=== PATIENT | female | born 2005 | race Caucasian/White ===

== ENCOUNTER 2024-05-10 07:30 | Inpatient (IN) | payer SELFPAY ==
[2024-05-10] VITALS (22 sets, daily range): BP systolic 100–124; BP diastolic 51–77; PULSE 64–113; RESP 16; TEMP 36.3–36.8; O2SAT 98; BMI 29.4
[2024-05-10] MEDS: Lactated Ringers 1,000 ML 50 ML IV (08:00)
[2024-05-10 08:33] LABS: Absolute Lymphocyte Count 1.08 X10^3/uL (0.83-4.51); Absolute Neutrophil Count 6.6 X10^3/uL (2.0-7.7); Basophil# 0.02 X10^3/uL; Basophil% 0.2 % (0-1); Eosinophil# 0.03 X10^3/uL; Eosinophils% 0.4 % (0-5); Hematocrit 32.6 % (37-47); Hemoglobin 10.3 g/dL (12.0-15.0); Lymphocyte # 1.08 X10^3/ul (0.83-4.51); Lymphocyte % 12.9 % (19-41); Mean Corp Hgb Conc 31.6 g/dL (32-36); Mean Corpuscular Hgb 27.9 pg (27.0-32.0); Mean Corpuscular Volume 88.3 fL (81-99); Monocyte# 0.57 X10^3/uL; Monocyte% 6.8 % (0-10); NRBC Flagged by Analyzer 0.2 % (0-5); Neutrophil # 6.58 X10^3/uL (2.7-7.7); Neutrophil % 78.9 % (47-70); Platelet Count 224 K/mm3 (150-450); RBC Distribution Width CV 13.7 % (11.6-14.6); RBC Distribution Width SD 43.6 fl (35.1-43.9); Red Blood Count 3.69 M/mm3 (4.2-5.4); White Blood Count 8.4 K/mm3 (4.4-11.0)
[2024-05-10 09:25] LABS: Syphilis Antibodies Non-reactive
[2024-05-10 09:40] LABS: Bedside Glucose 76 mg/dL (74-106)
[2024-05-10 14:09] LABS: Bedside Glucose 106 mg/dL (74-106)
--- NOTE | 2024-05-10 18:40 | PCM.HP.OB ---
HPI - General General Date of Admission: 05/10/24 Date of Service: 05/10/24 Chief Complaint: SROM HPI Narrative THIEN MCDANIEL, is a 18 F who presents SROM at term. Desires natural and water if able. GBS negative. GDMA1 controlled. Maternal Data Information Final SEAN: 05/13/24 Gestational age: 39+4 PFSH PFSH Medical History Gestational diabetes Enlarged tonsils and adenoids Home Medications ?Medication ?Instructions ?Recorded ?Last Taken ?Type evening primrose oil 500 mg capsule 500 mg PO DAILY 05/10/24 05/09/24 History fgrzztti-rrm-Qw-FA 1 mg tab PO DAILY 05/10/24 05/09/24 History tablet Allergy/AdvReac Type Severity Reaction Status Date / Time Penicillins Allergy Intermediate Rash Verified 05/10/24 10:15 Social History Smoking Status: Never smoker History Elective abortions Hx Para 0 Spontaneous abortions Hx # Term Pregnancies Ectopic pregnancies Hx # Pregnancies Multiple births # of living children NST FHR Rate Baby A Baseline: 130 Variability:: Moderate Accelerations:: 15 x 15 Decelerations:: None NST Reactive:: Yes FHR Category:: Category I ROS Constitutional Constitutional: Denies fatigue, fever(s) or malaise Eyes Eyes: Denies change in vision ENT HEENT: Denies dizziness or headache(s) Cardiovascular Cardiovascular: Denies chest pain, dyspnea or lightheadedness Respiratory/Chest Respiratory/Chest: Denies cough or dyspnea Gastrointestinal Gastrointestinal: Denies change in bowel habits Genitourinary Genitourinary: Denies burning urination or genital lesions Integumentary Integumentary: Denies rash Neurologic Neurologic: Denies confusion, dizziness, headache(s), numbness or weakness Vital Signs Vital Signs Vital Signs: 05/10/24 08:51 05/10/24 08:51 05/10/24 08:51 Temperature 97.7 F L Temperature Source Temporal Pulse Rate Respiratory Rate 16 Blood Pressure BP Systolic BP Diastolic Pulse Ox 05/10/24 08:52 05/10/24 08:52 05/10/24 09:00 Temperature Temperature Source Temporal Pulse Rate 87 Respiratory Rate Blood Pressure 100/58 L BP Systolic 100 BP Diastolic 58 Pulse Ox 05/10/24 09:00 05/10/24 09:00 05/10/24 09:00 Temperature 97.7 F L Temperature Source Pulse Rate 88 Respiratory Rate 16 Blood Pressure BP Systolic BP Diastolic Pulse Ox 05/10/24 09:30 05/10/24 09:30 05/10/24 10:00 Temperature Temperature Source Pulse Rate 80 80 Respiratory Rate 16 Blood Pressure BP Systolic BP Diastolic Pulse Ox 05/10/24 10:00 05/10/24 10:58 05/10/24 10:58 Temperature Temperature Source Pulse Rate 64 Respiratory Rate 16 16 Blood Pressure BP Systolic BP Diastolic Pulse Ox 05/10/24 11:03 05/10/24 11:03 05/10/24 11:03 Temperature Temperature Source Temporal Pulse Rate 81 Respiratory Rate 16 Blood Pressure BP Systolic BP Diastolic Pulse Ox 05/10/24 11:03 05/10/24 11:03 05/10/24 11:04 Temperature 98.0 F Temperature Source Pulse Rate Respiratory Rate Blood Pressure 114/59 L BP Systolic 114 BP Diastolic 59 Pulse Ox 98 05/10/24 11:04 05/10/24 11:26 05/10/24 11:26 Temperature Temperature Source Pulse Rate 81 80 Respiratory Rate 16 Blood Pressure BP Systolic BP Diastolic Pulse Ox 05/10/24 12:00 05/10/24 12:00 05/10/24 12:00 Temperature Temperature Source Temporal Pulse Rate 80 Respiratory Rate 16 Blood Pressure BP Systolic BP Diastolic Pulse Ox 05/10/24 12:00 05/10/24 12:30 05/10/24 12:30 Temperature 97.5 F L Temperature Source Pulse Rate 86 Respiratory Rate 16 Blood Pressure BP Systolic BP Diastolic Pulse Ox 05/10/24 13:01 05/10/24 13:01 05/10/24 13:01 Temperature Temperature Source Temporal Pulse Rate 101 H Respiratory Rate Blood Pressure 113/56 L BP Systolic 113 BP Diastolic 56 Pulse Ox 05/10/24 13:01 05/10/24 13:01 05/10/24 13:01 Temperature 98.2 F Temperature Source Pulse Rate Respiratory Rate 16 Blood Pressure BP Systolic BP Diastolic Pulse Ox 98 05/10/24 13:02 05/10/24 13:02 05/10/24 13:02 Temperature Temperature Source Pulse Rate 101 H Respiratory Rate Blood Pressure 113/56 L BP Systolic 113 BP Diastolic 56 Pulse Ox 98 05/10/24 14:01 05/10/24 14:01 05/10/24 15:14 Temperature Temperature Source Pulse Rate 88 Respiratory Rate 16 Blood Pressure 104/51 L BP Systolic 104 BP Diastolic 51 Pulse Ox 05/10/24 15:14 05/10/24 15:14 05/10/24 15:14 Temperature Temperature Source Temporal Pulse Rate 99 Respiratory Rate 16 Blood Pressure BP Systolic BP Diastolic Pulse Ox 05/10/24 15:14 05/10/24 17:16 05/10/24 17:16 Temperature 97.3 F L Temperature Source Pulse Rate 90 Respiratory Rate 16 Blood Pressure BP Systolic BP Diastolic Pulse Ox 05/10/24 17:50 05/10/24 17:50 Temperature Temperature Source Pulse Rate 90 Respiratory Rate 16 Blood Pressure BP Systolic BP Diastolic Pulse Ox Weight Weight: 68.266 kg Body Mass Index (BMI) 29.4 Physical Exam Const alert and no apparent distress General Appearance: cooperative HEENT normocephalic Resp normal respiratory effort GI soft to palpation GI Narrative: gravid, nontender, appropriate for gestational age Extremity no calf tenderness General Extremity: edema Skin no wounds Rashes: No rashes noted Psych activity/motor behavior normal Labs Labs Labs: Blood Type A POSITIVE Antibody Screen NEGATIVE Hct 32.6 % (37-47) L Hgb 10.3 g/dL (12.0-15.0) L Syphilis Total Ab Non-reactive Assessment & Plan (1) SROM (spontaneous rupture of membranes): (2) 39 weeks gestation of : (3) GDM, class A1: PLAN: Plan Augmentation PRN
[2024-05-10 18:41] LABS: Bedside Glucose 116 mg/dL (74-106)
[2024-05-10 19:32] LABS: Bedside Glucose 104 mg/dL (74-106)
[2024-05-10 21:21] LABS: Bedside Glucose 100 mg/dL (74-106)
[2024-05-11] VITALS (21 sets, daily range): BP systolic 100–118; BP diastolic 55–64; PULSE 85–108; RESP 16; TEMP 36.3–37; O2SAT 95–98
[2024-05-11] MEDS: Oxytocin 15 Units/NS 250ml 15 UNITS/250 ML IV.SOLN 334 UNITS IV (00:02)
--- NOTE | 2024-05-11 00:33 | OP.PCM_ITS ---
Assessment & Plan (1) GDM, class A1: (2) Vaginal delivery: (3) Second degree perineal laceration: Vaginal Delivery Maternal Presentation Maternal Presentation: Active Labor and Spontaneous Rupture of Membranes Operative Information Date of Procedure: 05/10/24 Pre-Operative Diagnosis: SROM Post-Operative Diagnosis: , 2nd degree perineal laceration, Waterbirth Surgery / Procedure Performed: Spontaneous Vaginal Delivery and - (Waterbirth) Type of Anesthesia: Local with 1% Lidocaine Estimated Blood Loss: 400 ml Time of Delivery: 23:56 Findings Description of Procedure: Progressed to complete with urge to push. Unmedicated. of viable male, waterbirth. APGARS 8,9 respectively. Infant head delivered with body immediately forthcoming. Placed on maternal abdomen, strong cry. Mouth and nares wiped for secretions. Cord doubly clamped and cut by FOB after pulsations ceased, delayed cord clamping. Pitocin started for active 3rd stage management. Placenta delivered intact via calhoun, 3 vessel cord intact. Perineum inspected and rev ealed 2nd degree perineal laceration. Repaired with 3.0 vicryl rapide x2 and lidocaine. Fundus firm and hemostasis achieved. EBL 400ml. Mom and baby stable, planning to breastfeed. Family bonding well. present at delivery. Presentation: Vertex and AYAKA Amniotic Membrane Rupture Type: Spontaneous Amniotic Fluid Description: Clear Placental Delivery Description: Spontaneous Placenta Disposition: [facility] Cord Vessel Description: 3 Vessels Cord Entanglement: None Infant A Gender: Male (1 minute): 8 (5 minute): 9 Delayed Cord Clamping: Yes Post Vaginal Delivery Medications Given After Delivery: IV Pitocin Episiotomy Description: None Laceration: Perineal Extension/lac and 2nd degree Complication Complications: None
[2024-05-11] MEDS: Lidocaine 1% (20 ml mdv) 20 ML Vial INFILT (00:34)
[2024-05-11] MEDS: Oxytocin 15 Units/NS 250ml 15 UNITS/250 ML IV.SOLN 83 UNITS IV (00:47)
[2024-05-11 03:23] LABS: Bedside Glucose 147 mg/dL (74-106)
[2024-05-11 06:09] LABS: Absolute Lymphocyte Count 1.02 X10^3/uL (0.83-4.51); Absolute Neutrophil Count 15.6 X10^3/uL (2.0-7.7); Basophil# 0.02 X10^3/uL; Basophil% 0.1 % (0-1); Hematocrit 29.7 % (37-47); Hemoglobin 9.9 g/dL (12.0-15.0); Lymphocyte # 1.02 X10^3/ul (0.83-4.51); Lymphocyte % 5.9 % (19-41); Mean Corp Hgb Conc 33.3 g/dL (32-36); Mean Corpuscular Hgb 28.9 pg (27.0-32.0); Mean Corpuscular Volume 86.6 fL (81-99); Mean Platelet Vol. 10.9 fl (6.2-12.0); Monocyte# 0.54 X10^3/uL; Monocyte% 3.1 % (0-10); NRBC Flagged by Analyzer 0 % (0-5); Neutrophil % 90.5 % (47-70); Platelet Count 229 K/mm3 (150-450); RBC Distribution Width CV 13.8 % (11.6-14.6); RBC Distribution Width SD 42.3 fl (35.1-43.9); Red Blood Count 3.43 M/mm3 (4.2-5.4); White Blood Count 17.3 K/mm3 (4.4-11.0)
[2024-05-11 07:09] LABS: Bedside Glucose 153 mg/dL (74-106)
--- NOTE | 2024-05-11 07:34 | PN.OBGYN_ITS ---
Subjective Subjective Doing well. Has not been up much yet. Has not taken anything for pain yet, but would like motrin this am. Breast feeding. Voiding without difficulty Objective Data Objective Data Vital Signs: Vital Signs Temp Pulse Resp BP Pulse Ox O2 Del Method 97.3 F L 96 16 110/61 98 Room Air 05/11/24 04:15 05/11/24 04:15 05/11/24 04:15 05/11/24 04:15 05/11/24 04:15 05/11/24 04:15 Oxygen Delivery Method Room Air Weight: 68.266 kg Body Mass Index (BMI) 29.4 Intake & Output: Intake and Output for Last 24 Hours 05/09/24 05/10/24 05/11/24 23:59 23:59 23:59 Intake Total 533.33 / 533.33 500 / 500 Output Total 400 / 400 Balance 533.33 / 533.33 100 / 100 Lab / Micro Data 05/11/24 05:55 Labs: Laboratory Results - last 24 hr 05/10/24 08:07: WBC 8.4, RBC 3.69 L, Hgb 10.3 L, Hct 32.6 L, MCV 88.3, MCH 27.9, MCHC 31.6 L, RDW Std Deviation 43.6, RDW Coeff of Codie 13.7, Plt Count 224, MPV 11.0, Immature Gran % (Auto) 0.800, Neut % (Auto) 78.9 H, Lymph % (Auto) 12.9 L, [place] % (Auto) 6.8, Eos % (Auto) 0.4, Baso % (Auto) 0.2, Absolute Neuts (auto) 6.6, Absolute Lymphs (auto) 1.08, Nucleated RBC % 0.2, Syphilis Total Ab Non- reactive, Blood Type A POSITIVE, Antibody Screen NEGATIVE 05/10/24 09:10: POC Glucose 76 05/10/24 13:32: POC Glucose 106 05/10/24 17:37: POC Glucose 116 H 05/10/24 18:43: POC Glucose 104 05/10/24 20:35: POC Glucose 100 05/11/24 02:33: POC Glucose 147 H 05/11/24 05:55: WBC 17.3 H, RBC 3.43 L, Hgb 9.9 L, Hct 29.7 L, MCV 86.6, MCH 28.9, MCHC 33.3 D, RDW Std Deviation 42.3, RDW Coeff of Codie 13.8, Plt Count 229, MPV 10.9, Immature Gran % (Auto) 0.400, Neut % (Auto) 90.5 H, Lymph % (Auto) 5.9 L, [place] % (Auto) 3.1, Eos % (Auto) 0.0, Baso % (Auto) 0.1, Absolute Neuts (auto) 15.6 H, Absolute Lymphs (auto) 1.02, Nucleated RBC % 0 05/11/24 06:50: POC Glucose 153 H Physical Exam Const alert and no apparent distress Narrative: Fundus firm, below umbilicus. Assessment & Plan (1) Vaginal delivery: (2) Second degree perineal laceration: (3) GDM, class A1: PLAN: Plan routine care
[2024-05-11] MEDS: Ibuprofen 600 MG Tablet PO ×2 (07:40→16:34)
[2024-05-12 02:00] VITALS: BP 112/56; PULSE 100; RESP 16; TEMP 36.7; O2SAT 99
[2024-05-12 02:13] VITALS: PULSE 92; O2SAT 99
[2024-05-12 02:14] VITALS: BP 112/56; PULSE 98
[2024-05-12 07:27] VITALS: BP 112/56; PULSE 95
--- NOTE | 2024-05-12 07:29 | DS.PCM_ITS ---
Providers Date of Admission: 05/10/24 Primary Care Physician: NATASHA ALDANA Reason For Visit: LABOR Diagnosis Discharge Diagnosis (1) Vaginal delivery: Status: Acute Code(s): O80 - Encounter for full-term uncomplicated delivery (2) Second degree perineal laceration: Status: Acute Code(s): O70.1 - Second degree perineal laceration during delivery (3) GDM, class A1: Status: Acute Code(s): O24.410 - Gestational diabetes mellitus in , diet controlled Plan PPD 2 - water support D/C home with follow up in office Medications at Discharge Home Medications rfdsgupl-gwi-Iz-FA 1 mg tablet tab PO DAILY 05/10/24 acetaminophen 500 mg tablet 1,000 mg (2 x 500 mg) PO Q6H PRN PRN Pain 1-10 Or Fever #0 tabs 05/12/24 ibuprofen 600 mg tablet 600 mg PO Q6H PRN PRN Pain Score 1-10 #0 tabs 05/12/24 Hospital Course Operations None Procedures None Summary of Care Provided Minutes Spent on Discharge: 15 Hospital Course: Patient had . Hospital course was uneventful. Physical Exam Const alert and no apparent distress General Appearance: cooperative and comfortable Exam Limitations: no limitations HEENT normocephalic Eyes General Eye: normal appearance of both eyes Neck full ROM General: normal visual inspection Chest Chest: symmetrical chest wall rise Resp normal respiratory effort and normal air movement Effort and Inspection: symmetric chest movement Auscultation: clear to auscultation bilaterally Cardio regular rate and regular rhythm GI normal to inspection, nondistended, normoactive bowel sounds Back/Spine normal ROM Extremity full ROM and no calf tenderness General Extremity: normal exam except as noted Skin no rashes or lesions noted Neuro CN's II-XII intact bilaterally Psych mental status grossly normal Weight / BMI Weight Weight: 150 lb 8 oz Body Mass Index (BMI) 29.4 ABG / Lab / Microbiology Data 05/11/24 05:55 D/C Instructions Discharge Diet: No restrictions May resume sexual activity in: 6-8 weeks Weight Bearing Status: Weight bearing as tolerated Call your doctor if you observe: Fever of 101 or Higher, Inability to urinate, Using more than 1 pad per hour, Shortness of breath, Chest pain, Calf discomfort and Uncontrolled pain When: 2 weeks virtual visit/ 6 weeks in office Meaningful Use Info Meaningful Use Meaningful Use Diagnoses (Choose all that apply): None applicable Ischemic Stroke Statin Dosing Therapy Reference: STATIN DOSE THERAPY REFERENCE: * Patients > 75 years receive moderate or high dose statin therapy. * Patients 75 years or YOUNGER should receive HIGH intensity statin dose unless contraindicated. You will be required to document reason for non-treatment if statin daily dose does not meet guidelines. HIGH DOSE STATIN THERAPY DAILY Atorvastatin > than or = to 40 mg Rosuvastatin > than or = to 20 mg Amlodipine + Atorvastatin > than or = to 2.5/40 mg Ezetimibe + Simvastatin 10/80 mg Simvastatin 80mg Discharge Plan Admission Admit Date/Time: 05/10/24 07:30 Primary Reason for Your Visit: Labor and Delivery Attending Provider: Fabiola Davies Primary Care Provider: EVARISTO NUNEZ Discharge Orders/Prescriptions Prescriptions: New acetaminophen 500 mg Tablet 1,000 mg PO Q6H PRN PRN (Reason: Pain 1-10 Or Fever) Qty: 0 0RF ibuprofen 600 mg Tablet 600 mg PO Q6H PRN PRN (Reason: Pain Score 1-10) Qty: 0 0RF Continued ozeyjhdu-wta-Td-FA 1 mg tablet PO DAILY Discontinued evening primrose oil 500 mg capsule 500 mg PO DAILY Rx Instructions: give with meal/snack Referrals / Follow Up: EVARISTO NUNEZ [employer]CHANIC[employer]ELDER[facility] [Primary Care Provider] - Disposition Disposition (needs filled in before D/C Order can be placed): Home, Self Care
[2024-05-12 07:30] VITALS: BP 112/56; PULSE 95; RESP 16; TEMP 36.8
== END 2024-05-12 13:55 | disposition home or self-care (01) | DRG 807 ==
LOC: WPOUT 08:52 → WP 08:53
PROVIDERS: Advanced Practice Midwife; Admitting Provider Obstetrics & Gynecology; PCP Nurse Practitioner Family; Visit Provider Obstetrics & Gynecology
DX: O24.420 Gestational diabetes mellitus in childbirth, diet controlled (principal); Z37.0 Single live birth; O70.1 Second degree perineal laceration during delivery; Z3A.39 39 weeks gestation of pregnancy
CPT/HCPCS: 59025; 59050; 82962; 85025; 86780; 86850; 86900; 86901; 99221; J7120; G0378

== ENCOUNTER 2024-06-15 18:23 | Observation (INO) | payer SELFPAY ==
[2024-06-15 18:24] VITALS: BP 128/91; PULSE 96; RESP 18; TEMP 36.6; O2SAT 100; BMI 24.4
[2024-06-15 20:14] LABS: Mucous, Urine 0 SEEN /hpf (<or=2+)
[2024-06-15 20:16] LABS: Basophil# 0.02 X10^3/uL; Basophil% 0.1 % (0-1); Hematocrit 38.6 % (37-47); Hemoglobin 12.5 g/dL (12.0-15.0); Lymphocyte % 4.5 % (19-41); Mean Corp Hgb Conc 32.4 g/dL (32-36); Mean Corpuscular Hgb 27.2 pg (27.0-32.0); Mean Corpuscular Volume 84.1 fL (81-99); Mean Platelet Vol. 9.3 fl (6.2-12.0); Monocyte# 0.97 X10^3/uL; Monocyte% 6.2 % (0-10); NRBC Flagged by Analyzer 0 % (0-5); Neutrophil # 13.97 X10^3/uL (2.7-7.7); Neutrophil % 88.8 % (47-70); Platelet Count 291 K/mm3 (150-450); RBC Distribution Width SD 39.7 fl (35.1-43.9); Red Blood Count 4.59 M/mm3 (4.2-5.4); White Blood Count 15.7 K/mm3 (4.4-11.0)
[2024-06-15 20:20] LABS: Color, Urine Yellow (Yellow); Glucose, Dipstick Normal (Normal); Leukocyte Esterase-Dipstick Negative /ul (Negative); Nitrite-Dipstick Negative (Negative); Occult Blood-Urine 50 /ul (Negative); Protein-Dipstick 30 mg/dl (Negative); Specific Gravity, Urine 1.015 (1.002-1.030); Urine Bilirubin Dipstick Negative (Negative); Urine Clarity Sl. Cloudy (Clear); Urine Urobilinogen Normal (Normal)
[2024-06-15 20:24] VITALS: BP 119/70; PULSE 91; RESP 18; TEMP 36.6; O2SAT 99
[2024-06-15 20:34] LABS: Internal QC Validated? YES +Cl - CLEAR BKGD; Pregnancy, Serum, hCG Quali. NEGATIVE Negative; Record Kit Lot#, Serum Preg. 772476
[2024-06-15 20:36] LABS: Ketone-Dipstick 150 mg/dl (Negative)
[2024-06-15 20:40] LABS: Squamous Epithelial Cells - UA 0-5 SEEN /hpf (5-10)
[2024-06-15 20:41] LABS: Bacteria 1+ /hpf (None Seen); Red Blood Cells-Urine 0-5 SEEN /hpf (0-5); White Blood Cells 0-5 SEEN /hpf (0-5)
--- NOTE | 2024-06-15 20:56 | EX.ED.DYSGE1 ---
HPI History of Present Illness Chief Complaint: Nausea/Vomiting Detail of Chief Complaint: Periumbilical pain with vomiting x 10 since yesterday Informant: patient Onset/Context/Timing Onset: Today and Yesterday Context: Sudden Onset Timing: Intermittent and Waxes and wanes Quality: Periumbilical pain. Current Severity: Mild Maximum Severity: Moderate Worsened by: Nothing Relieved by: Nothing Associated Symptoms Associated Symptoms: Nausea and vomiting Narrative Narrative: Patient is a 19-year-old G1, P1 female who delivered in April. She had a first menses started last evening. She reports periumbilical pain. She does report nausea and vomiting. She denies coffee-ground emesis or hematemesis. She denies diarrhea. Denies black or maroon-colored stool. She denies dysuria, frequency, urgency or hematuria. She does endorse thirst and dry mouth. She denies orthostatic symptoms. She denies headache, visual, ocular auditory symptoms. She denies cough, shortness of breath or chest discomfort. Prior similar symptoms: No Recent Illness/Hospitalization: No PFSH [facility] Medical History Second degree perineal laceration Vaginal delivery GDM, class A1 39 weeks gestation of SROM (spontaneous rupture of membranes) Gestational diabetes Enlarged tonsils and adenoids Home Medications ?Medication ?Instructions ?Recorded ?Last Taken ?Type kkwicwbp-vps-Rr-FA 1 mg tab PO DAILY 05/10/24 05/09/24 History tablet acetaminophen 500 mg tablet 1,000 mg (2 x 500 mg) PO Q6H PRN 05/12/24 Unknown Rx PRN Pain 1-10 Or Fever #0 tabs ibuprofen 600 mg tablet 600 mg PO Q6H PRN PRN Pain Score 05/12/24 Unknown Rx 1-10 #0 tabs Allergy/AdvReac Type Severity Reaction Status Date / Time Penicillins Allergy Intermediate Rash Verified 06/15/24 19:01 Social History (Updated 06/15/24 @ 21:[address] Jarad Simms MD) household members: spouse and children Smoking Status: Never smoker ROS ROS ED Constitutional Constitutional ED: Denies chills, fever(s), subjective, sweats or weight loss Eyes Eyes: Denies blurry vision, change in vision or diplopia ENT ENT ED: Denies ear pain, rhinorrhea or sore throat Cardiovascular Cardiovascular: Denies chest pain, orthopnea, palpitations or paroxysmal nocturnal dyspnea Respiratory/Chest Respiratory/Chest: Denies cough, dyspnea, dyspnea on exertion, orthopnea or paroxysmal nocturnal dyspnea Gastrointestinal Gastrointestinal: Reports abdominal pain, nausea and vomiting; Denies constipation, diarrhea or melena Genitourinary Genitourinary ED: Reports LMP (females 10-50) Details: Comment: (June 14, 2024); Denies dysuria, hematuria or urinary frequency Musculoskeletal Musculoskeletal: Denies arthralgias, back pain, myalgias or neck pain Integumentary Denies rash Neurologic Neurologic: Denies headache(s) or paresthesias Hematologic/Lymphatic Hematologic/Lymphatic: Reports systems reviewed and no addt'l complaints, except as documented EXAM Physical Exam Const Vital Signs: 06/15/24 18:24 Temperature 98 F Temperature Source Temporal Pulse Rate 96 Respiratory Rate 18 Blood Pressure 128/91 H Blood Pressure Mean 103 Pulse Ox 100 Oxygen Delivery Method Room Air Positive well nourished and well developed Constitutional Narrative: Patient appears pale and ill. She does not appear toxic. General Appearance ED: well developed, NAD and pallor HEENT Reports dry mucous membranes HEENT Narrative: Head is atraumatic normocephalic. Ears normal. Nares patent. Mouth ED: Yes dry mucous membranes Mouth: dry mucous membranes Eyes PERRL and EOMs intact bilaterally General Eye ED: Negative for pale conjunctiva or scleral icterus Neck no lymphadenopathy, supple and no JVD Resp normal respiratory effort and clear to auscultation bilaterally Cardio regular rate, regular rhythm, S1 normal heart sound, S2 normal heart sound and no murmurs GI normal to inspection, nondistended, normoactive bowel sounds, non-distended and no masses; Negative for non-tender or hepatosplenomegaly GI Narrative: Minimal periumbilical pain. There is no guarding or peritoneal findings. Palpation: soft Back/Spine no CVA tenderness Thoracic Spine / Upper Back: Negative for thoracic spinal tenderness Lumbar Spine / Lower Back: Negative for lumbar spinal tenderness Extremity normal to inspection General Extremety ED: Negative for edema or tenderness General Extremity: Negative for edema Neuro oriented x3, CN's II-XII intact bilaterally and no sensory deficits noted Sensorium / Orientation: alert Motor Exam: strength 5/5 throughout Psych mental status grossly normal Skin no rashes or lesions noted, no wounds and skin turgor normal General Skin Exam: elasticity normal and pallor; Negative for jaundice MDM MDM MDM Narrative Medical decision making narrative: Patient with abrupt onset of nausea vomiting abdominal pain. This may represent a viral illness. Her history and physical is not consistent with bowel obstruction. There is no anorexia. There is no right quadrant pain. Doubt this to be a atypical presentation of appendicitis. Patient's nausea was treated with Zofran. 1 L normal saline was ordered. Lab Data Attestation: I reviewed the patient's lab results. Lab results narrative: Nurse protocol orders were placed. Patient does have a white count. There is slight shift. This is nonspecific. Urinalysis is remarkable for ketones. There is 1+ bacteria with no pyuria and macro is negative for leukoesterase and nitrates. This is asymptomatic bacteriuria recommendation is no treatment. This may also be due to the fact that she is dehydrated. Labs: Laboratory Results - last 24 hr 06/15/24 06/15/24 20:00 20:10 WBC 15.7 H RBC 4.59 Hgb 12.5 Hct 38.6 MCV 84.1 MCH 27.2 MCHC 32.4 RDW Std Deviation 39.7 RDW Coeff of Codie 13.0 Plt Count 291 MPV 9.3 Immature Gran % (Auto) 0.400 Neut % (Auto) 88.8 H Lymph % (Auto) 4.5 L [place] % (Auto) 6.2 Eos % (Auto) 0.0 Baso % (Auto) 0.1 Absolute Neuts (auto) 14.0 H Absolute Lymphs (auto) 0.70 L Nucleated RBC % 0 Sodium 136 Potassium 3.4 L Chloride 105 Carbon Dioxide 22.0 Anion Gap 9 BUN 9 Creatinine 0.97 Estim Creat Clear Calc 72.39 Est GFR (MDRD) Af Amer 94 Est GFR (MDRD) Non-Af 77 BUN/Creatinine Ratio 9.3 L Glucose 140 H Calcium 9.2 Total Bilirubin 0.90 AST 15 ALT 15 Alkaline Phosphatase 70 Total Protein 7.6 Albumin 3.8 Globulin 3.8 Albumin/Globulin Ratio 1.0 Serum , Qual NEGATIVE Urine Color Yellow Urine Clarity Sl. Cloudy Urine pH 8.0 Ur Specific [place] 1.015 Urine Protein 30 H Urine Glucose (UA) Normal Urine Ketones 150 A* Urine Occult Blood 50 H Urine Nitrite Negative Urine Bilirubin Negative Urine Urobilinogen Normal Ur Leukocyte Esterase Negative Urine RBC 0-5 SEEN Urine WBC 0-5 SEEN Ur Squamous Epith Cells 0-5 SEEN Urine Bacteria 1+ Urine Mucus 0 SEEN Radiography Diagnostic Testing: Clinical Impression(s) from Imaging Studies Abdomen/Pelvis CT 06/15/24 21:08 IMPRESSION: Findings consistent with acute appendicitis and possibly leaking due to presence of a small amount of free fluid. No evidence for periappendiceal abscess Electronically Signed: Shelton Verde MD at 21:52 EDT Reading Location ID and State: [facility] / [place] Tel , Service support , CT on my review revealed an abnormal appearing bladder and there appears to be stones in the bladder or pendulous. Awaiting formal read by radiologist. Patient reports allergy to penicillin with rash. Will page surgeon and start on antibiotics. Management Discussion w/another healthcare provider: [employer] (Dr. Huff is made aware. He will be in to see patient. He was informed because of her penicillin allergy she received a dose of meropenem.) and Radiologist Treatment and Re-Evaluation :: I was informed by nurse at 2003 the patient is requesting pain medicine. She was reevaluated. Patient has significant tenderness which she did not when I initially saw her. In light of this morphine was ordered and a CT of the abdomen with IV contrast was ordered as well. Discharge Plan Dx/Rx/DC Orders Clinical Impression: Acute appendicitis, Nausea & vomiting, Ketosis, Asymptomatic bacteriuria Disposition Disposition: Acute Care [facility]
[2024-06-15 20:59] LABS: AST(SGOT) 15 U/L (15-37); Alanine Aminotransfer ALT/SGPT 15 U/L (13-56); Albumin, Serum 3.8 g/dL (3.2-5.0); Alkaline Phosphatase 70 U/L (45-117); Anion Gap 9 (5-15); BUN 9 mg/dL (7-18); BUN/Creat Ratio 9.3 RATIO (10-20); Calcium,Total 9.2 mg/dL (8.5-10.1); Chloride 105 mmol/L (98-107); Creatinine, Serum 0.97 mg/dL (0.55-1.02); EST Glomerular Filtration Rate 77 mL/min (>60); Est Glom Filt Rate - Afr Amer 94 mL/min (>60); Estimated Creatinine Clearance 72.39 ml/min; Globulin 3.8 g/dL (2.2-4.2); Glucose 140 mg/dL (74-106); Potassium 3.4 mmol/L (3.5-5.1); Protein, Total 7.6 g/dL (6.4-8.2); Sodium Level 136 mmol/L (136-145)
--- NOTE | 2024-06-15 21:08 | CT_ITS ---
We are attempting to reach an attending provider to discuss findings. An addendum with communication details will be sent when the communication is complete. STUDY: CT ABDOMEN AND PELVIS WITH CONTRAST REASON FOR EXAM: Female, 19 years old. Pain, guarding, leukocytosis, N/V RADIATION DOSAGE (If Supplied By Facility): CTDIvol = ( 10.83 ) mGy, DLP = ( 390.44 ) mGycm TECHNIQUE: Transaxial images were obtained from the dome of the diaphragm to the symphysis pubis without oral contrast. IV 75mL Isovue-300 was administered. Sagittal and coronal images were reconstructed. Individualized dose optimization techniques were used for this CT. COMPARISON: None. FINDINGS: The visualized lung bases are unremarkable. The visualized portions of the heart are within normal limits. Normal liver. Normal gallbladder and extrahepatic biliary system. Normal spleen. Normal pancreas. Normal bilateral adrenal glands. Normal right kidney. Normal left kidney. Normal visualized stomach. Normal small intestine. Normal colon. The appendix is dilated and there are multiple appendicoliths present as well as mild stranding in the periappendiceal fat consistent with acute appendicitis. There is no periappendiceal abscess however there is small amount of fluid in the pelvis possibly due to leaking of the appendix. Normal abdominal aorta. Normal inferior vena cava. Normal retroperitoneum. Poorly distended thick walled bladder likely of no significance. Normal abdominal wall. Normal osseous structures. CT/Abdomen/Pelvis W IV Cont ONLY IMPRESSION: Findings consistent with acute appendicitis and possibly leaking due to presence of a small amount of free fluid. No evidence for periappendiceal abscess Electronically Signed: Shelton Verde MD at 21:52 EDT Reading Location ID and State: [facility] / [place] Tel , Service support ,
[2024-06-15] MEDS: Morphine 4 MG/ML Syringe 3 MG IV (21:09)
[2024-06-15 22:24] VITALS: BP 120/68; PULSE 97; RESP 18; TEMP 36.8; O2SAT 98
--- NOTE | 2024-06-15 22:31 | PCM.HP.STD ---
[facility] - General General Date of Service: 06/15/24 Chief Complaint: Abdominal pain with nausea and vomiting HPI Narrative THIEN MCDANIEL, is a 19 F who presents to [facility] with complaints of just over 24 hours of acute onset periumbilical abdominal pain has been associated with numerous episodes of emesis. Patient denies any prior experience of this discomfort. She shares that the emesis is a bilious character now after eliminating all of the food she ingested this morning. ER workup was notable for CBC with leukocytosis of 15.7. CT imaging of the abdomen pelvis was obtained after emergency medicine appreciated significant tenderness to patient's abdomen and this demonstrates evidence of acute appendicitis with some associated free fluid. Radiology reads the significance of this free fluid is possibly leaking from a distended appendix with multiple appendicoliths obstructing the lumen. Patient is recently from her first delivery April of this year. She denies any associated complications and has a healthy 2-month-old boy at home. She otherwise denies any medical diagnoses and only past surgical history is related to a tonsillectomy. [facility] Medical History Second degree perineal laceration Vaginal delivery GDM, class A1 39 weeks gestation of SROM (spontaneous rupture of membranes) Gestational diabetes Enlarged tonsils and adenoids Home Medications ?Medication ?Instructions ?Recorded ?Last Taken ?Type mnhpaumo-vti-Rf-FA 1 mg tab PO DAILY 05/10/24 05/09/24 History tablet acetaminophen 500 mg tablet 1,000 mg (2 x 500 mg) PO Q6H PRN 05/12/24 Unknown Rx PRN Pain 1-10 Or Fever #0 tabs ibuprofen 600 mg tablet 600 mg PO Q6H PRN PRN Pain Score 05/12/24 Unknown Rx 1-10 #0 tabs Allergy/AdvReac Type Severity Reaction Status Date / Time Penicillins Allergy Intermediate Rash Verified 06/15/24 19:01 Social History (Updated 06/15/24 @ 21:[address] Jarad Simms MD) household members: spouse and children Smoking Status: Never smoker Vital Signs Vital Signs Vital Signs: 06/15/24 18:24 Temperature 98 F Temperature Source Temporal Pulse Rate 96 Respiratory Rate 18 Blood Pressure 128/91 H Blood Pressure Mean 103 Pulse Ox 100 Oxygen Delivery Method Room Air Weight Weight: 125 lb Body Mass Index (BMI) 24.4 Physical Exam Const alert, oriented x3, no apparent distress and well nourished General Appearance: cooperative Resp normal respiratory effort GI GI Narrative: Linea nigracans, mildly loose skin of the abdomen, nondistended, soft, exquisite tenderness to palpation of McBurney's point. Negative Rovsing, mildly positive psoas sign, negative obturator sign. Results Lab / Micro Data 06/15/24 20:00 06/15/24 20:00 Labs: Laboratory Results - last 24 hr 06/15/24 20:00: WBC 15.7 H, RBC 4.59, Hgb 12.5, Hct 38.6, MCV 84.1, MCH 27.2, MCHC 32.4, RDW Std Deviation 39.7, RDW Coeff of Codie 13.0, Plt Count 291, MPV 9.3, Immature Gran % (Auto) 0.400, Neut % (Auto) 88.8 H, Lymph % (Auto) 4.5 L, Hood % (Auto) 6.2, Eos % (Auto) 0.0, Baso % (Auto) 0.1, Absolute Neuts (auto) 14.0 H, Absolute Lymphs (auto) 0.70 L, Nucleated RBC % 0, Sodium 136, Potassium 3.4 L, Chloride 105, Carbon Dioxide 22.0, Anion Gap 9, BUN 9, Creatinine 0.97, Estim Creat Clear Calc 72.39, Est GFR (MDRD) Af Amer 94, Est GFR (MDRD) Non-Af 77, BUN/Creatinine Ratio 9.3 L, Glucose 140 H, Calcium 9.2, Total Bilirubin 0.90, AST 15, ALT 15, Alkaline Phosphatase 70, Total Protein 7.6, Albumin 3.8, Globulin 3.8, Albumin/Globulin Ratio 1.0, Serum , Qual NEGATIVE 06/15/24 20:10: Urine Color Yellow, Urine Clarity Sl. Cloudy, Urine pH 8.0, Ur Specific [place] 1.015, Urine Protein 30 H, Urine Glucose (UA) Normal, Urine Ketones 150 A*, Urine Occult Blood 50 H, Urine Nitrite Negative, Urine Bilirubin Negative, Urine Urobilinogen Normal, Ur Leukocyte Esterase Negative, Urine RBC 0-5 SEEN, Urine WBC 0-5 SEEN, Ur Squamous Epith Cells 0-5 SEEN, Urine Bacteria 1+, Urine Mucus 0 SEEN Imaging Radiology Impression Abdomen/Pelvis CT 06/15/24 21:08 IMPRESSION: Findings consistent with acute appendicitis and possibly leaking due to presence of a small amount of free fluid. No evidence for periappendiceal abscess Electronically Signed: Shelton Verde MD at 21:52 EDT , ADDENDUM: 06/15/24 2200 IMPRESSION: Findings consistent with acute appendicitis and possibly leaking due to presence of a small amount of free fluid. No evidence for periappendiceal abscess N.B. : The above Results were Read Back by Shelton Verde MD to Jarad Simms MD, and understanding confirmed on 06/15/2024 21:53:11 (ET). Electronically Signed: Shelton Verde MD at 21:52 EDT , Assessment & Plan Assessment/Plan (1) Acute appendicitis: PLAN: Patient is a 19-year-old female who presents with 24 hours of acute onset abdominal pain and nausea and vomiting which appeared represent symptoms of acute appendicitis. This diagnosis is reserved unequivocally on CT imaging that shows a large appendicolith obstructing the appendiceal lumen at its base. Appendix measures over 1.3 cm in diameter and radiology notes presence of some associated free fluid which the read is concerning for possibly leaking from the appendix. I held an abbreviated conversation with patient and her spouse at bedside discussing the need to proceed emergently for surgical appendectomy to try to head off the risk for vahid perforation. I described the differences between complicated and uncomplicated appendicitis?particular as they pertain to the postoperative recovery. Given the location of patient's appendicolith I also communicated the need for possible partial ceectomy versus ileocecectomy in order to obtain a staple line across healthy tissue. He and drawings were made to illustrate the relevant anatomy. I shared that this would ultimately be left to an intraoperative evaluation. Patient was receptive of this recommendation. Operating room staff and on-call anesthesia has been notified. Will proceed emergently for laparoscopic appendectomy versus partial cecectomy versus ileocecectomy at first operating room convenience. Patient is administered IV antibiotics per emergency medicine empirically. Postoperatively, given the late hour and risk for possible perforation/more involved operation, patient will be observed in the hospital. Javier Huff MD General Surgery Endocrine Surgery Pager: [facility] [address] [place] [address] [address] [place] [address] Office: [phone] Charges/Coding Visit Charges Inpatient E&M: 28286 Init Hosp L2
[2024-06-15] MEDS: Meropenem 1 GM in 0.9% Normal Saline (100mL MB+) 100 ML IV (22:40)
[2024-06-15 22:46] VITALS: BP 138/78; PULSE 80; RESP 16; TEMP 36.9; O2SAT 99
[2024-06-15 22:47] VITALS: BP 138/78; PULSE 81; RESP 16; TEMP 36.9; O2SAT 99; BMI 24.4
--- NOTE | 2024-06-15 23:25 | ED.RN ---
Report called to AC nurse at this time. No further questions by receiving nurse at this time.
--- NOTE | 2024-06-15 23:50 | APP_PTH ---
PATIENT: THIEN MCDANIEL LOC: MS3 U#:[id number] AGE/SX: 19/F ROOM: [facility] [place] RE06/16/[address]: Dr. Javier Huff MD : 2005 BED: 1 DIS: 06/16/2024 SPEC #: [id number] RECD: 06/16/24 11:53 STATUS: TANYA BUCKLEY #: [id number] HELDER: 06/15/24 23:[address]: Javier Huff DEPT: SURGICAL PATHOLOGY RECD BY: Marry Vee ENTERED: 06/16/24 12:05 SP TYPE: APPENDIX OTHR DR: EVARISTO NUNEZ, RAFFY-Kristan Tissues: Appendix, NOS Procedures: Surgery Specimen Level III HEADER OPERATION: Laparoscopic appendectomy PRE-OP DIAGNOSIS: Acute appendicitis TISSUE SUBMITTED: Appendix MICROSCOPIC DIAGNOSIS Appendix, appendectomy: Acute appendicitis and periappendicitis. TI/ 06/19/2024 MICROSCOPIC DESCRIPTION Slides are reviewed. GROSS DESCRIPTION Received in fixative is one container labeled with the patient's name and designated appendix. The specimen consists of lateral J shaped appendix measuring 10.5 cm in length and 1.0 to 1.5 cm in diameter. The attached periappendiceal adipose tissue measures up to 2.0 cm in width. The serosa is covered with urbina purulent exudate. No obvious perforation is identified. The lumen contains hemorrhagic purulent material and a fecalith measuring 1.2cm in greatest dimension. Explosives Operator sections are submitted in one cassette. / TI: 06/16/2024 TC:2 CPT: 31464
[2024-06-16] VITALS (12 sets, daily range): BP systolic 100–138; BP diastolic 51–87; PULSE 66–95; RESP 16; TEMP 36.3–37.1; O2SAT 97–100; BMI 24.5
[2024-06-16] MEDS: Bupiv/Epi 0.25% 30 ML Vial (00:32)
--- NOTE | 2024-06-16 00:34 | OP.PCM_ITS ---
Report of Operation Date of Procedure: 06/16/24 Pre-Operative Diagnosis: Acute appendicitis Post-Operative Diagnosis: Acute, uncomplicated appendicitis with associated serositis Surgery/Procedure Performed:: Laparoscopic appendectomy Description of Surgical Findings:: ? Simple serous fluid in the pelvis about a severely dilated and injected appendix without evidence of perforation Surgeon: Javier Huff public service representative: Nikia Mayo Type of Anesthesia: General/Supplemental Anesthesiologist: Srinivasa Owens Specimen's removed: appendix Estimated Blood Loss (mL): 2 Description of Procedure: After appropriate identification in the preoperative holding area, the patient was brought to the operating room and placed supine on the operating room table. Antibiotics had been preoperatively administered by emergency medicine. Patient was then induced with general endotracheal anesthetic. The abdomen was prepped and draped in usual sterile fashion. Formal timeout was conducted to confirm both the patient and the procedure. A supraumbilical incision was made and carried down to the level of the fascia which was sharply opened. After opening the peritoneum in like fashion a finger sweep was made to confirm position, and a balloon trocar was placed and pneumoperitoneum was established to 15 mmHg. Patient was positioned in Trendelenburg with the left side down. 2 additional 5 mm trocars were placed in the left lower quadrant and suprapubic positions. The peritoneum was inspected and there were no signs of inadvertent injury from this Velarde entry. The appendix was visualized with moderately severe inflammation and omentum was adherent to the base portion of the appendix but there were no signs of perforation. Some simple serous fluid was noted in the pelvis adjacent to the appendix. Using blunt laparoscopic dissection, a window was made in the mesoappendix adjacent to the appendiceal base. The mesoappendix was divided with application of a laparoscopic harmonic. Then the base of the appendix was sealed and amputated with the use of an Endo FRANSICO stapler. The appendix was placed in an Endo Catch bag. The staple line was inspected for hemostasis but there was some oozing from one of the staple line corners. I attempted to apply direct pressure to this area by placing a Ray-Yunior into the peritoneum and this pressure was held for a period of 2 minutes. Upon lifting his pressure bleeding persisted?albeit at a slower rate. Thus I elected to place a single titanium clip across the staple line and this did result in hemostasis. After hemostasis was confirmed the appendix was removed from the umbilical port site. Pneumoperitoneum was then evacuated and the supraumbilical port site fascia was closed with #1 Vicryl in a [id number] fashion. The port sites were infiltrated with 22 mL local anesthetic. The skin of each port site was closed with 4-0 Monocryl in a subcuticular fashion. Steri-Strips and OpSite dressings were applied. Patient tolerated procedure well without any apparent complications. They were awoken from general anesthetic without issue and transferred to post anesthesia care unit for ongoing recovery. Complications None Admit VTE Documentation VTE Mechan Device Prophylaxis: SCD's Procedures Digestive [id number]-49xxx: 90439 Laparoscopy appendectomy
--- NOTE | 2024-06-16 00:54 | PCM.POST.ANE ---
Anesthesia: Postop Eval I Current Vital Signs Temperature: 98.8 F Pulse Rate: 83 Blood Pressure: 121/73 Respiratory Rate: 16 Pulse Ox: 100 Oxygen Delivery Method: Room Air Assessment Airway patent: Yes Spontaneous unlabored respirations: Yes Mental status: Awake and Calm nausea: No Vomiting: No Anesthesia Complication: No Fluid Hydration Crystalloid volume administer (ml): 600 Total IV fluid infused: 600 Progress Note Anesthesia document: Postop Eval 1 completed: Yes
--- NOTE | 2024-06-16 00:56 | PCM.PRE.AN2 ---
ASA Classification* ASA Classification ASA Classification: 2 and E Assessment & Plan Anesthesia* Anesthesia Assessment Anesthesia Assessment: Discussed sedation and/or anesthesia options, risks, benefits, and alternatives with patient/parents/legal guardian/POA. Questions invited. The patient/parents/legal guardian/POA seems to understand and agrees to proceed with anesthesia plan. Reviewed the physical assessment, medical history, allergy history and patient home medications list prior to surgery/procedure/anesthetic and documented any changes. Performed airway and anesthesia risk assessments. Anesthesia Type Anesthesia Type: General History Source History Obtained from:: Patient and Chart Anesthesia Focused Assessment* Temperature: 98.8 F Pulse Rate: 83 Blood Pressure: 121/73 Respiratory Rate: 16 Pulse Ox: 100 Oxygen Delivery Method: Room Air Airway Assessment Mouth opens: 2 cm Mallampati Score: IV Teeth Condition: Intact Neck Range of motion (ROM): Full ROM Focused Labs Anesthesia Preop lab: CBC WBC 15.7 K/mm3 (4.4-11.0) H 06/15/24 20:00 RBC 4.59 M/mm3 (4.2-5.4) 06/15/24 20:00 Hgb 12.5 g/dL (12.0-15.0) 06/15/24 20:00 Hct 38.6 % (37-47) 06/15/24 20:00 Plt Count 291 K/mm3 (150-450) 06/15/24 20:00 CHEMISTRY Potassium 3.4 mmol/L (3.5-5.1) L 06/15/24 20:00 Sodium 136 mmol/L (136-145) 06/15/24 20:00 BUN 9 mg/dL (7-18) 06/15/24 20:00 Creatinine 0.97 mg/dL (0.55-1.02) 06/15/24 20:00 Glucose 140 mg/dL (74-106) H 06/15/24 20:00 POC Glucose 153 mg/dL (74-106) H 05/11/24 06:50 COAG Pre-Assessment Diagnosis/Proposed Procedure Planned Operative Procedure(s): Laparoscopic appendectomy Anesthesia History Anesthesia History - gis software engineer: Anesthesia History - gis software engineer Hx Hospitalization Any Problems With Anesthesia No 06/15/24 22:47 Cholinesterase deficiency No 06/15/24 22:47 You/Your Family Experience No 06/15/24 22:47 fever (hyperthermia) with Relationship Recent Exposure to Contagious No 06/15/24 22:47 Disease Does patient have nerve No 06/15/24 22:47 stimulator Patient instructed to have No 06/15/24 22:47 device shut off --Does patient have Pacemaker No 06/15/24 22:47 or ICD? When Was Last Pacemaker Check QUESTION #4 FULL TEXT: You/Your Family Experience fever (hyperthermia) with Anesthesia Last Oral Intake Last Oral intake: Last Oral Intake NPO since 14:00 06/15/24 22:47 Meds taken in AM with sips of No 06/15/24 22:47 water? Meds patient instructed to take am of surgery PONV PONV - gis software engineer: PONV - gis software engineer Female HX of Motion Sickness HX of N/V After Surgery Non-Smoker Duration of Surgery greater than 60 minutes Number of Risk Factors PONV Score Height & Weight Height & Weight: Anesthesia: Height & Weight Height 5 ft 06/15/24 22:47 Weight: 56.699 kg 06/15/24 22:47 Body Mass Index (BMI) 24.4 06/15/24 22:47 Respiratory Assessment Respiratory Assessment - gis software engineer: Respiratory Tract Infection Hx - gis software engineer Hx Respiratory Tract Infection No 06/15/24 22:47 STOP Sleep Apnea STOP Sleep Apnea - gis software engineer: STOP Sleep Apnea - gis software engineer Hx Hypertension No 06/15/24 22:47 Hx Sleep Apnea No 06/15/24 22:47 CPAP BIPAP Do you snore loudly (louder No 06/15/24 22:47 than talking or can be heard Do you often feel tired/ No 06/15/24 22:47 fatigued/ sleepy during daytime? Has anyone observed you stop No 06/15/24 22:47 breathing during sleep? STOP Results Negative 06/15/24 22:47 QUESTION #5 FULL TEXT : Do you snore loudly (louder than talking or can be heard through closed doors)? Tobacco Use History Tobacco Use History - gis software engineer: Tobacco Use History - gis software engineer Tobacco Use Smoking Status Never smoker 06/15/24 21:00 Hx Tobacco Use No 05/10/24 08:45 Years Smoking Packs Smoked per Day Smoking Cessation Date was within the last 15 years Hx Smoking Cessation Date Hx Smoking Cessation Counseling Hematologic Medial History Hematologic Hx - gis software engineer: Hematologic Medical Hx - customer specialist Hx of Blood Transfusion Hx of Transfusion in last 3 Months Date of Last Transfusion (if within last 3 months) Ever experience any problems with transfusion(s)? Specify any problems Hx of Preganancy in last 3 Months Nurse Filling Out Transfusion & Questions: Date: Time: Patient unable to answer at this time (ie. confused, unrespo /Reproduction History /Reproductive History - gis software engineer: /Reproductive Hx- gis software engineer Hx Now No 06/15/24 22:47 Gestational Age (in weeks): EDC: Hx Hx Para Hx Section SAB No 06/15/24 22:47 Active Medications Active Medications: Current Medications Generic Name Dose Route Start Last Admin Trade Name Freq PRN Reason Stop Dose Admin Acetaminophen 500 mg 06/16/24 00:31 Acetaminophen 500 Mg Tablet PO Q6H PRN PRN Pain Score 1-10 Lactated Ringer's 1,000 mls @ 75 mls/hr 06/16/24 00:45 IV .[id number] KIM Ibuprofen 400 mg 06/16/24 06:00 Ibuprofen 400 Mg Tablet PO Q6 KIM Ondansetron HCl 4 mg 06/16/24 00:31 Ondansetron 4 Mg/2 Ml Vial IV Q6H PRN PRN NAUSEA/VOMITING Oxycodone HCl 5 mg 06/16/24 00:31 Oxycodone 5 Mg Tablet PO Q6H PRN PRN Pain Score 6-10 PFSH Medical History Second degree perineal laceration Vaginal delivery GDM, class A1 39 weeks gestation of SROM (spontaneous rupture of membranes) Gestational diabetes Enlarged tonsils and adenoids Home Medications ?Medication ?Instructions ?Recorded ?Last Taken ?Type ygfmccni-kue-Dd-FA 1 mg tab PO DAILY 05/10/24 05/09/24 History tablet acetaminophen 500 mg tablet 1,000 mg (2 x 500 mg) PO Q6H PRN 05/12/24 Unknown Rx PRN Pain 1-10 Or Fever #0 tabs ibuprofen 600 mg tablet 600 mg PO Q6H PRN PRN Pain Score 05/12/24 Unknown Rx 1-10 #0 tabs Allergy/AdvReac Type Severity Reaction Status Date / Time Penicillins Allergy Intermediate Rash Verified 06/15/24 19:01 Social History household members: spouse and children Smoking Status: Never smoker Review of Systems (Anesthesia) ROS Narrative System reviewed and no additional complaints, except as documented.
--- NOTE | 2024-06-16 01:12 | PCM.POSTANE2 ---
Anesthesia Postop Eval I Sum Postop Eval Completion status Anesthesia document: Postop Eval 1 completed: Yes Anesthesia Postop Eval I Summary Anesthesia Postop Eval I Summary: Anesthesia Postop Eval I: Assessment Summary Airway patent Yes 06/16/24 00:56 Spontaneous unlabored Yes 06/16/24 00:56 respirations Mental status Awake,Calm 06/16/24 00:56 nausea No 06/16/24 00:56 Vomiting No 06/16/24 00:56 Anesthesia Postop Eval I: Fluid Summary Crystalloid volume administer 600 06/16/24 00:56 (ml) Colloids volume administered ( ml) Blood Product volume administered (ml) Total IV fluid infused 600 06/16/24 00:56 Anesthesia Postop Eval I: Summary Notes Anesthesia Complication No 06/16/24 00:56 Anesthesia Complication Comment: Post-operative progress note Anesthesia: Postop Eval II Evaluation Mental status: Awake and Calm Pain Level: 3 nausea: No Vomiting: No Complications Anesthesia Complication: No
[2024-06-16] MEDS: Lactated Ringers 1,000 ML 75 ML IV (01:45)
[2024-06-16] MEDS: Ibuprofen 400 MG Tablet PO (08:41)
--- NOTE | 2024-06-16 09:22 | DCINST_ITS ---
Discharge Instructions Diet Discharge Diet: No restrictions Activity Discharge Activity: May Not Drive (No driving while using narcotic pain medication) and May Shower (Postoperative day 1) May shower in (days): 1 Ice area for (Minutes): 20 Lifting Restrictions: No lifting greater than 15 pounds for 2 weeks after surgery Dressing / Incision Call your doctor if your incision/area has: Continuous Slow Oozing, Increased Pain/ Swelling, Increased Redness, Foul Smelling Discharge and Swelling at the incision site Call your doctor if you observe: Fever of 101 or Higher Remove Dressing in: 1 day (Please leave Steri-Strips intact until they fall off spontaneously or are taken off at your follow-up visit) Cleanse incision/area with: Soap & Water Follow Up Care Please Follow Up With: Javier Huff MD When: 10-14days postop Test Results: Test results from this visit will be discussed in further detail at your follow- up appointment, if applicable. Discharge Plan Admission Admit Date/Time: 06/16/24 00:31 Primary Reason for Your Visit: Appendectomy Attending Provider: Javier Huff Primary Care Provider: Johana Cochran Primary Discharge Orders/Prescriptions Prescriptions: New oxycodone 5 mg Tablet 5 mg PO Q6H PRN PRN (Reason: Pain Score 6-10) 3 Days Qty: 10 0RF Continued fmvgbpjg-mmg-Iw-FA 1 mg tablet 2 tab PO DAILY acetaminophen 500 mg Tablet 1,000 mg PO Q6H PRN PRN (Reason: Pain 1-10 Or Fever) Qty: 0 0RF ibuprofen 600 mg Tablet 600 mg PO Q6H PRN PRN (Reason: Pain Score 1-10) Qty: 0 0RF Referrals / Follow Up: Care Johana Walker Primary [Primary Care Provider] - Disposition Disposition (needs filled in before D/C Order can be placed): Home, Self Care
--- NOTE | 2024-06-16 11:35 | DS.PCM_ITS ---
Providers Date of Admission: 06/16/24 Primary Care Physician: No Primary Care Phys Reason For Visit: ACUTE APPENDICITIS Diagnosis Discharge Diagnosis (1) Acute appendicitis: Status: Acute Code(s): K35.80 - Unspecified acute appendicitis Plan: Patient is a 19-year-old female who presents with 24 hours of acute onset abdominal pain and nausea and vomiting which appeared represent symptoms of acute appendicitis. This diagnosis is reserved unequivocally on CT imaging that shows a large appendicolith obstructing the appendiceal lumen at its base. Appendix measures over 1.3 cm in diameter and radiology notes presence of some associated free fluid which the read is concerning for possibly leaking from the appendix. I held an abbreviated conversation with patient and her spouse at bedside discussing the need to proceed emergently for surgical appendectomy to try to head off the risk for vahid perforation. I described the differences between complicated and uncomplicated appendicitis?particular as they pertain to the postoperative recovery. Given the location of patient's appendicolith I also communicated the need for possible partial ceectomy versus ileocecectomy in order to obtain a staple line across healthy tissue. He and drawings were made to illustrate the relevant anatomy. I shared that this would ultimately be left to an intraoperative evaluation. Patient was receptive of this recommendation. Operating room staff and on-call anesthesia has been notified. Will proceed emergently for laparoscopic appendectomy versus partial cecectomy versus ileocecectomy at first operating room convenience. Patient is administered IV antibiotics per emergency medicine empirically. Postoperatively, given the late hour and risk for possible perforation/more involved operation, patient will be observed in the hospital. Javier Huff MD General Surgery Endocrine Surgery Pager: [facility] [address] [place] [address], [address] [place] [address] Office: [phone] Medications at Discharge Home Medications [id number] 1 mg tablet 2 tab PO DAILY 05/10/24 acetaminophen 500 mg tablet 1,000 mg (2 x 500 mg) PO Q6H PRN PRN Pain 1-10 Or Fever #0 tabs 05/12/24 ibuprofen 600 mg tablet 600 mg PO Q6H PRN PRN Pain Score 1-10 #0 tabs 05/12/24 oxycodone 5 mg tablet 5 mg PO Q6H PRN PRN Pain Score 6-10 3 days #10 tabs 06/16/24 Hospital Course Operations appendectomy Procedures None Summary of Care Provided Hospital Course: Patient is a 19-year-old female who presented to [facility] ER the evening of 06/15/2024. Based on patient's history ER workup was conducted and consistent with diagnosis of acute appendicitis with CT imaging showing a 1.3 cm dilated appendix with several appendicoliths and evidence of possible leakage from the appendix given the presence of free fluid. Upon my evaluation I found patient's exam to be consistent and recommended emergent appendectomy given the apparent risk for impending perforation. I also discussed the possibility of needing to proceed with a partial cecectomy versus ileocecectomy in the event that we did not have healthy tissue across which to [place] stapler. Patient and her readily agreed and consents were obtained while the OR was notified. Patient proceeded to the OR for laparoscopic appendectomy shortly after this evaluation. Procedure was completed in uncomplicated fashion, however, given the late hour list which it was performed patient was admitted to the hospital for observation. She was seen later in the morning and reported significant improvement in her discomfort and her vital signs remained stable. Her diet was thus advanced and upon further check-in nursing confirmed the patient was feeling well and prepared for discharge. Thus discharge request was granted and patient was provided discharge restrictions in written form to reflect previous oral instructions on wound care and expectation for outpatient follow-up. Physical Exam Const alert, oriented x3 and no apparent distress Resp normal respiratory effort GI GI Narrative: Mild strikethrough to supraumbilical dressing, nondistended, soft, minimally but appropriately tender to palpation Weight / BMI Weight Weight: 124 lb 12.506 oz Body Mass Index (BMI) 24.5 ABG / Lab / Microbiology Data 06/15/24 20:00 06/15/24 20:00 Laboratory: Laboratory Results - last 24 hr 06/15/24 20:00: WBC 15.7 H, RBC 4.59, Hgb 12.5, Hct 38.6, MCV 84.1, MCH 27.2, MCHC 32.4, RDW Std Deviation 39.7, RDW Coeff of Codie 13.0, Plt Count 291, MPV 9.3, Immature Gran % (Auto) 0.400, Neut % (Auto) 88.8 H, Lymph % (Auto) 4.5 L, [place] % (Auto) 6.2, Eos % (Auto) 0.0, Baso % (Auto) 0.1, Absolute Neuts (auto) 14.0 H, Absolute Lymphs (auto) 0.70 L, Nucleated RBC % 0, Sodium 136, Potassium 3.4 L, Chloride 105, Carbon Dioxide 22.0, Anion Gap 9, BUN 9, Creatinine 0.97, Estim Creat Clear Calc 72.39, Est GFR (MDRD) Af Amer 94, Est GFR (MDRD) Non-Af 77, BUN/Creatinine Ratio 9.3 L, Glucose 140 H, Calcium 9.2, Total Bilirubin 0.90, AST 15, ALT 15, Alkaline Phosphatase 70, Total Protein 7.6, Albumin 3.8, Globulin 3.8, Albumin/Globulin Ratio 1.0, Serum , Qual NEGATIVE 06/15/24 20:10: Urine Color Yellow, Urine Clarity Sl. Cloudy, Urine pH 8.0, Ur Specific [place] 1.015, Urine Protein 30 H, Urine Glucose (UA) Normal, Urine Ketones 150 A*, Urine Occult Blood 50 H, Urine Nitrite Negative, Urine Bilirubin Negative, Urine Urobilinogen Normal, Ur Leukocyte Esterase Negative, Urine RBC 0-5 SEEN, Urine WBC 0-5 SEEN, Ur Squamous Epith Cells 0-5 SEEN, Urine Bacteria 1+, Urine Mucus 0 SEEN Radiography Diagnostic Testing: Radiology Impression Abdomen/Pelvis CT 06/15/24 21:08 IMPRESSION: Findings consistent with acute appendicitis and possibly leaking due to presence of a small amount of free fluid. No evidence for periappendiceal abscess Electronically Signed: Shelton Verde MD at 21:52 EDT Reading Location ID and State: [address] [place] [address] Tel , Service support , ADDENDUM: 06/15/24 2200 IMPRESSION: Findings consistent with acute appendicitis and possibly leaking due to presence of a small amount of free fluid. No evidence for periappendiceal abscess N.B. : The above Results were Read Back by Shelton Verde MD to Jarad Simms MD, and understanding confirmed on 06/15/2024 21:53:11 (ET). Electronically Signed: Shelton Verde MD at 21:52 EDT Reading Location ID and State: [address] [place] [address] Tel , Service support , D/C Instructions Discharge Diet: No restrictions May shower in (days): 1 Ice area for (Minutes): 20 Call your doctor if your incision/area has: Continuous Slow Oozing, Increased Pain/ Swelling, Increased Redness, Foul Smelling Discharge and Swelling at the incision site Call your doctor if you observe: Fever of 101 or Higher Cleanse incision/area with: Soap & Water Please Follow Up With: Javier Huff MD When: 10-14days postop Meaningful Use Info Meaningful Use Meaningful Use Diagnoses (Choose all that apply): None applicable Ischemic Stroke Statin Dosing Therapy Reference: STATIN DOSE THERAPY REFERENCE: * Patients > 75 years receive moderate or high dose statin therapy. * Patients 75 years or YOUNGER should receive HIGH intensity statin dose unless contraindicated. You will be required to document reason for non-treatment if statin daily dose does not meet guidelines. HIGH DOSE STATIN THERAPY DAILY Atorvastatin > than or = to 40 mg Rosuvastatin > than or = to 20 mg Amlodipine + Atorvastatin > than or = to 2.5/40 mg Ezetimibe + Simvastatin 10/80 mg Simvastatin 80mg Discharge Plan Admission Admit Date/Time: 06/16/24 00:31 Primary Reason for Your Visit: Appendectomy Attending Provider: Javier Huff Primary Care Provider: EVARISTO NUNEZ Discharge Orders/Prescriptions Prescriptions: New oxycodone 5 mg Tablet 5 mg PO Q6H PRN PRN (Reason: Pain Score 6-10) 3 Days Qty: 10 0RF Continued [id number] 1 mg tablet 2 tab PO DAILY acetaminophen 500 mg Tablet 1,000 mg PO Q6H PRN PRN (Reason: Pain 1-10 Or Fever) Qty: 0 0RF ibuprofen 600 mg Tablet 600 mg PO Q6H PRN PRN (Reason: Pain Score 1-10) Qty: 0 0RF Referrals / Follow Up: Care Physician,No Primary [Non-Staff] - Disposition Disposition (needs filled in before D/C Order can be placed): Home, Self Care Charges/Coding Visit Charges Inpatient E&M: 09054 Disch Hosp
--- NOTE | 2024-06-16 11:49 | CASEMGMT ---
KAREN CM into pt room as pt has dc order in. Pt denies any concerns upon homegoing. Pt states she does have PCP Jono Ofelia.
--- NOTE | 2024-06-16 14:22 | PHA.DC_ITS ---
Pharmacy [place] Med Reconciliation Pharmacy Service has performed discharge medication reconciliation for this patient. Attempted to recreation counselor but patient was already discharged. The patient's discharge medication list was reviewed for discrepancies and discrepancies were resolved. Medications at Discharge Home Medications [id number] 1 mg tablet 2 tab PO DAILY 05/10/24 acetaminophen 500 mg tablet 1,000 mg (2 x 500 mg) PO Q6H PRN PRN Pain 1-10 Or Fever #0 tabs 05/12/24 ibuprofen 600 mg tablet 600 mg PO Q6H PRN PRN Pain Score 1-10 #0 tabs 05/12/24 oxycodone 5 mg tablet 5 mg PO Q6H PRN PRN Pain Score 6-10 3 days #10 tabs 06/16/24
== END 2024-06-16 14:25 | disposition home or self-care (01) ==
LOC: ED 21:56 → SDC 22:09 → AC 22:11 → SDC 06-16 01:29 → MS3 06-16 11:36
PROVIDERS: Admitting Provider Surgery; Emergency Provider Emergency Medicine; PCP Nurse Practitioner Family; Visit Provider Surgery
PROC: 0DTJ4ZZ Resection of Appendix, Percutaneous Endoscopic Approach (ICD-10-PCS; CPT 44970; principal; 2024-06-15 23:30)
DX: K35.80 Unspecified acute appendicitis (principal)
CPT/HCPCS: 44970; 00840; 74177; 80053; 81001; 84703; 85025; 87040; 88304; 96361; 96374; 99221; 99284; J2185; J7030; J7120; Q9967; A4216; G0378; J2405